=== PATIENT | female | born 1985 | race Caucasian/White ===

== ENCOUNTER 2021-10-21 15:37 | Emergency (ER) | payer OTHER, SELFPAY ==
[2021-10-21 15:56] VITALS: BP 125/71; PULSE 106; RESP 18; TEMP 36.9; O2SAT 99
[2021-10-21 16:50] LABS: Basophils Percent Auto 0.2 % (0.2-1.2); Eosinophils Absolute Auto 0.1 K/mm3 (0-0.3); Eosinophils Percent Auto 0.8 % (0-4.4); Hematocrit 42.4 % (37.0-47.0); Hemoglobin 14.9 g/dL (12.0-15.0); Immature Granulocyte Absolute 0.03 K/mm3 (0.00-0.031); Immature Granulocyte Percent A 0.3 % (0-0.5); Lymphocytes Absolute Auto 0.28 K/mm3 (0.9-3.2); Mean Corpuscular HGB Conc 35.1 g/dl (32-36); Mean Corpuscular Volume 85.3 fl (80-100); Mean Platelet Volume 10.6 fl (7.4-10.4); Monocytes Absolute Auto 0.5 K/mm3 (0.1-0.6); Monocytes Percent Auto 4.9 % (2.6-8.5); Neutrophils Absolute Auto 8.3 K/mm3 (1.3-6.7); Neutrophils Percent Auto 90.8 % (45.5-73.1); Platelet Count Result 218 k/mm3 (150-375); Red Blood Count 4.97 M/mm3 (4.2-5.4); Red Cell Distribution Width 11.8 % (11.5-14.5); White Blood Count 9.2 K/mm3 (4.5-10.0)
[2021-10-21 17:07] LABS: Alanine Aminotransferase 17 U/L (4-35); Albumin Level 4.6 g/dL (3.5-5.1); Alkaline Phosphatase 83 U/L (38-126); Anion Gap 9 mmol/L (8-16); Aspartate Amino Transferase 36 U/L (14-36); Bilirubin,Total 1.6 mg/dL (0.2-1.3); Blood Urea Nitrogen 12 mg/dL (7-17); Calcium 8.6 mg/dL (8.4-10.2); Carbon Dioxide 21 mmol/L (22-30); Chloride 103 mmol/L (98-107); Estimated CRCL calculation 87 ml/min; Estimated Glomerular Filt Rate > 60; Glucose 107 mg/dL (65-110); Lipase 66 U/L (23-300); Potassium 3.8 mmol/L (3.4-5.0); Sodium 133 mmol/L (137-145)
--- NOTE | 2021-10-21 17:47 | ED.NAVMDI ---
HPI - Nausea/Vomiting/Diarrhea General Chief complaint: Nausea/Vomiting/Diarrhea Stated complaint: n/v/d Time Seen by Provider: 10/21/21 17:35 History of Present Illness HPI Narrative: Patient is a 36-year-old female who presents the emergency department from urgent care for evaluation of diarrhea today. Patient states she has had about 20 episodes of diarrhea with 2 episodes of incontinence. Denies blood in her stool, but does note 2 episodes of dark stools. She took Pepto-Bismol earlier today without relief. She has not attempted solid p.o. today, but did drink a Powerade earlier. Additionally reporting some diffuse abdominal cramping and nausea, but no vomiting. Specifically denies right lower quadrant pain. States that her children are having similar symptoms at home. She has had no surgeries on her abdomen. Denies recent antibiotic use, recent travel, new or suspicious foods, numbness or tingling in groin region, back pain, fevers, chills. Related Data Allergies Allergy/AdvReac Type Severity Reaction Status Date / Time No Known Allergies Allergy Verified 10/21/21 16:02 Review of Systems Review of Systems: Gen.: Denies fevers or chills Eyes: Denies eye pain or visual change ENT: Denies congestion Respiratory: Denies shortness of breath or cough CV: Denies chest pain or palpitations GI: Reports abdominal pain nausea,or diarrhea. Denies vomiting. denies burning, urgency, frequency or hematuria Musculoskeletal: Denies back pain or muscle pain Neuro: Denies numbness, tingling, weakness or focal weakness Skin: Denies rash Except as documented, all other systems reviewed and negative All systems reviewed & are unremarkable except as noted in HPI and below Exam Narrative: APPEARANCE: Well appearing, no pain in distress, well-nourished. Head normocephalic and atraumatic. EYES: PERRLA/EOMI, conjunctivae clear NOSE: No nasal drainage EARS: External ear normal in appearance THROAT: Oropharynx is clear. Mucous membranes are moist. NECK: Supple. No adenopathy, no masses. RESPIRATORY: Airway patent, respirations nonlabored. Clear to auscultation bilaterally, no rales, rhonchi, wheezing. CARDIOVASCULAR: Regular rate and rhythm without murmurs, rubs, or gallops. ABDOMINAL: Hyperactive bowel sounds. Mild amount of tenderness diffusely. No rebound tenderness or guarding. MUSCULOSKELETAL: Extremities are warm and well-perfused. Moves all extremities well. No edema. : Patient has good rectal tone- no stool palpated in rectal vault. Moderate amount of loose stool noted around rectum with no blood. NEURO: Normal speech. No focal neurologic deficits. SKIN: Skin is warm and dry. No rashes. PSYCHIATRIC: Normal affect/mood. Course Vital Signs Vital signs: Vital Signs Temperature 98.4 F 10/21/21 15:56 Pulse Rate 106 H 10/21/21 15:56 Respiratory Rate 18 10/21/21 15:56 Blood Pressure 125/71 10/21/21 15:56 Pulse Oximetry 99 10/21/21 15:56 Temperature 98.4 F 10/21/21 15:56 Pulse Rate 90 10/21/21 20:15 Respiratory Rate 18 10/21/21 20:15 Blood Pressure 108/61 10/21/21 20:15 Pulse Oximetry 99 10/21/21 20:15 MDM - Nausea/Vomiting/Diarrhea MDM Narrative Medical decision making narrative: 36-year-old female here with nausea, diarrhea, and abdominal cramping today. Kids with similar symptoms at home. Vital signs stable, abdominal tenderness is mild and diffuse without rebound or guarding, no leukocytosis. Labs consistent with diarrhea. Found to have elevation in bilirubin but no elevation in transaminases. Favor gastroenteritis as patient's kids had similar symptoms. No recent antibiotic use to suggest C. difficile, no recent travel. Patient feeling better after fluids, Zofran and dicyclomine. Will discharge home, discussed return precautions. Advised patient to have elevated bilirubin worked up as an outpatient. Lab Data Result diagrams: 10/21/21 16:41 10/21/21 16:41
--- NOTE | 2021-10-21 18:26 | PC.NURSE ---
asked pt for urine sample. pt states I have nothing left in me pt refusing straight catheter.
[2021-10-21] MEDS: DICYCLOMINE HCL INJ 20 MG/2 ML VIAL IM (18:32)
[2021-10-21] MEDS: SODIUM CHLORIDE 0.9% IV 1,000 ML 999 ML IV CONT (18:32)
[2021-10-21] MEDS: ONDANSETRON INJ 4 MG/2 ML VIAL IV PUSH (18:32)
--- NOTE | 2021-10-21 19:42 | PC.NURSE ---
Handoff received from Corinne FOLEY. Patient found sitting in ED stretcher comfortably with 3 children in room. Calm and cooperative. AAOX4. Equal and unlabored resp. Skin is warm and dry. IV in place secured and patent. IVF completed. Reports feeling better than on arrival. No complaints at this time. Stated she still did not have any urine and that she was told CT would be canceled. Will follow up.
[2021-10-21 20:15] VITALS: BP 108/61; PULSE 90; RESP 18; O2SAT 99
== END 2021-10-21 20:16 | disposition home or self-care (01) ==
PROVIDERS: Emergency Medicine; Emergency Provider Emergency Medicine
DX: K52.9 Noninfective gastroenteritis and colitis, unspecified (principal)
CPT/HCPCS: 36415; 80053; 83690; 85025; 96361; 96372; 96374; 99284; J0500; J2405; J7030